=== PATIENT | male | born 1965 | race Two or more races ===

== ENCOUNTER 2018-10-04 20:15 | Emergency (ER) | payer SELFPAY ==
[~2018-10-04] VITALS: Ht 165.1 cm; Wt 70.5 kg
[2018-10-04] MEDS ORDERED: LIDOCAINE HCL/PF 1% 2ML VIAL INFIL ONE (22:15)
[2018-10-04] MEDS ORDERED: TETANUS, DIPHTHERIA, PERTUSSIS VAC/PF 0.5ML (>7YR OLD) IM ONE (22:15)
[2018-10-04] MEDS ORDERED: IBUPROFEN 600MG TABLET PO ONE (22:30)
[2018-10-04] MEDS ORDERED: LIDOCAINE HCL/PF 1% 10 MG/ML 5ML VIAL IJ SCH (23:30)
[2018-10-05 00:45] VITALS: BP 130/98
== END 2018-10-05 01:01 | disposition home or self-care (01) ==
LOC: ER 20:15
DX: S51.812A Laceration without foreign body of left forearm, initial encounter (principal); Y08.89XA Assault by other specified means, initial encounter; Y93.89 Activity, other specified; Y92.89 Other specified places as the place of occurrence of the external cause; Y99.8 Other external cause status
CPT/HCPCS: 12002; 90471; 90715; 99283; J3490